=== PATIENT | female | born 1990 | race Caucasian/White ===

== ENCOUNTER 2017-06-30 11:54 | Emergency (ER) | payer OTHER ==
[~2017-06-30] VITALS: Ht 167.6 cm; Wt 69.5 kg
[2017-06-30 13:55] LABS: CHLORIDE 107 mEq/L (99-109); SODIUM 136 mEq/L (136-147)
[2017-06-30 13:57] LABS: GLUCOSE 89 mg/dL (70-99)
[2017-06-30 13:59] LABS: ANION GAP 6 MEQ/L (2-14)
[2017-06-30 14:01] LABS: GFR ESTIMATE (CALCULATED) > 59 mL/min/
[2017-06-30 14:02] LABS: UREA NITROGEN (BUN) 8 mg/dL (9-23)
[2017-06-30 14:06] LABS: HEMATOCRIT 31.2 % (36.0-46.0); MCH 22.9 PG (29.0-34.0); MCHC 31.7 G/DL (30.0-36.0); MCV 72.1 FL (83-99); MEAN PLAT.VOLUME 11.7 uM^3 (9.5-12.4); PLATELET COUNT 222 K/uL (156-360); RBC DIS.WIDTH-CV 15.9 % (11.8-14.6); RBC DIS.WIDTH-SD 41.2 % (39-53); RED BLOOD COUNT 4.33 M/uL (3.80-5.20); WHITE BLOOD COUNT 7.1 K/uL (4.1-10.2)
[2017-06-30 14:32] LABS: TOTAL BILIRUBIN 0.2 mg/dL (0.0-1.0)
[2017-06-30 14:33] LABS: ALKALINE PHOSPHATASE 93 IU/L (3-129)
[2017-06-30 14:35] LABS: DIRECT BILIRUBIN 0.1 mg/dL (0.0-0.3)
[2017-06-30 17:15] VITALS: BP 108/64
== END 2017-06-30 17:16 | disposition home or self-care (01) ==
LOC: EDBD 11:54 → EME 11:54
PROVIDERS: Physician Assistant Medical
DX: O26.892 Other specified pregnancy related conditions, second trimester (principal); R42 Dizziness and giddiness; R07.9 Chest pain, unspecified; Z3A.20 20 weeks gestation of pregnancy
CPT/HCPCS: 80048; 80076; 85027; 93005; 99281; 99284; J7030